=== PATIENT | male | born 2000 | race Caucasian/White ===

== ENCOUNTER 2018-09-17 17:17 | Emergency (ER) | payer SELFPAY ==
[~2018-09-17] VITALS: Ht 188 cm; Wt 71.7 kg
[2018-09-17 17:41] VITALS: BP 119/73
--- NOTE | 2018-09-17 17:57 | NUR ---
Pt arrives to ed with left ear pain and sore throat. Pt reports symptoms started last wednesday. Pt reports taking abx at home with amoxicillin his mother gave him.
[2018-09-17] MEDS ORDERED: DEXAMETHASONE 4 MG TABLET ONE (18:02)
[2018-09-17] MEDS ORDERED: KETOROLAC 30 MG/1 ML ONE (18:02)
[2018-09-17] MEDS ORDERED: DEXAMETHASONE 4 MG TABLET PO ONE (18:30)
[2018-09-17] MEDS ORDERED: KETOROLAC 30 MG/1 ML IM ONE (18:30)
--- NOTE | 2018-09-17 18:44 | NUR ---
all results back chart up for recheck.
--- NOTE | 2018-09-17 19:29 | NUR ---
Patient/Caregiver given discharge instructions and they have confirmed that they understand the instructions. Patient ambulatory with steady gait.
== END 2018-09-17 19:35 | disposition home or self-care (01) ==
LOC: ED 19:29
DX: J02.0 Streptococcal pharyngitis (principal)
CPT/HCPCS: 87081; 87880; 96372; 99283; J1885

== ENCOUNTER 2019-03-03 21:35 | Emergency (ER) | payer SELFPAY ==
[~2019-03-03] VITALS: Ht 188 cm; Wt 79.3 kg
--- NOTE | 2019-03-03 21:46 | NUR ---
NO ANSWER WHEN PT CALLED FOR TRIAGE @ 1605.
[2019-03-03 21:50] VITALS: BP 111/75
[2019-03-03] MEDS ORDERED: DIPH,PERTUSS(ACELL),TET VAC/PF 0.5 ML IM-VACC ONE ×2 (22:01→22:30)
[2019-03-03] MEDS ORDERED: LIDOCAINE-MPF 1%, 5ML ONE (22:01)
[2019-03-03] MEDS ORDERED: LIDOCAINE-MPF 1%, 5ML INFIL ONE (22:30)
[2019-03-03] MEDS ORDERED: BACITRACIN ZINC OINT 500U/GM, 0.9 GM ONE (22:37)
== END 2019-03-03 23:30 | disposition home or self-care (01) ==
LOC: ED 23:20
DX: S61.411A Laceration without foreign body of right hand, initial encounter (principal); G89.11 Acute pain due to trauma; W45.8XXA Other foreign body or object entering through skin, initial encounter; Y93.89 Activity, other specified; Y92.89 Other specified places as the place of occurrence of the external cause; Y99.8 Other external cause status
CPT/HCPCS: 12001; 90471; 90715; 99283

== ENCOUNTER 2020-11-07 23:35 | Emergency (ER) | payer SELFPAY ==
[~2020-11-07] VITALS: Ht 185.4 cm; Wt 77.0 kg
--- NOTE | 2020-11-07 23:51 | NUR ---
Patient presents to ER c/o intermittent palpitations today with left arm numbness. Patient has had this feeling before but never with the arm numbness involved. Patient has been evaluated before by a doctor and dx with anxiety. He was put on meds for it but has stopped taking them. Patient describes it as his heart feeling "like it stops then starts again really hard." Patient denies SOB, N/V. Patient is in NAD. REspirations even and unlabored.
[2020-11-08 00:46] LABS: ALBUMIN 3.9 g/dL (3.4-5.0); ANION GAP 6 mmol/L (5-15); CALCIUM 8.5 mg/dL (8.5-10.1); CHLORIDE 108 mmol/L (98-107); CREATININE 1.04 mg/dL (0.7-1.3)
[2020-11-08 00:49] LABS: BASOPHILS % (AUTO) 1 % (0-1); EOSINOPHILS % (AUTO) 5 % (1-7); LYMPHOCYTES % (AUTO) 38 % (22-44); MD NO; MEAN CORPUSCULAR HEMOGLOBIN 29.7 pg (27.5-34.5); MEAN CORPUSCULAR HGB CONC 34.4 g/dL (33.2-36.2); MONOCYTES % (AUTO) 9 % (2-9); NEUTROPHILS % (AUTO) 48 % (42-75); PLATELET COUNT 316 x10^3/uL (130-400); RED CELL DISTRIBUTION WIDTH 13.3 % (9.4-14.8)
[2020-11-08 00:50] LABS: TROPONIN I < 0.015 ng/mL (0.000-0.045)
[2020-11-08 01:48] VITALS: BP 128/72
== END 2020-11-08 01:49 | disposition home or self-care (01) ==
LOC: ED 11-08 00:19
DX: R00.2 Palpitations (principal); F41.1 Generalized anxiety disorder; R07.89 Other chest pain
CPT/HCPCS: 36415; 71045; 80048; 82040; 84484; 85025; 93005; 99285